=== PATIENT | female | born 1945 | race Caucasian/White ===

== ENCOUNTER 2019-06-03 18:11 | Emergency (ER) | payer MEDICARE, OTHER ==
[~2019-06-03] VITALS: Ht 157.5 cm; Wt 92.4 kg
[2019-06-03 18:16] VITALS: BP 139/88
--- NOTE | 2019-06-03 18:49 | NUR ---
PT STATES SHE WAS GIVEN GINKGO BILOBA 75MG, GARLIC TABLET, L-ARGININE TO TREAT HER HEADACHE. SHE ALSO REPORTS TAKING 2 BAYOR ASPIRIN'S.
[2019-06-03] MEDS ORDERED: ketorolac trometh inj. 60 MG/2 ML VIAL IM ONE (19:50)
[2019-06-03] MEDS ORDERED: ketorolac trometh. 30mg/ml inj. IM ONE (20:00)
== END 2019-06-03 20:30 | disposition home or self-care (01) ==
LOC: ER 18:12
DX: G43.909 Migraine, unspecified, not intractable, without status migrainosus (principal); I25.10 Atherosclerotic heart disease of native coronary artery without angina pectoris; Z95.1 Presence of aortocoronary bypass graft; Z88.2 Allergy status to sulfonamides
CPT/HCPCS: 70450; 96372; 99284; J1885

== ENCOUNTER 2025-03-15 16:09 | Outpatient (CLI) | payer MEDICARE, MEDICAID ==
[~2025-03-15 16:09] MED LIST: NO HOME MEDS
[2025-03-15 16:55] LABS: MEAN PLATELET VOLUME 10.8 FL (7.4-10.4); RED CELL DISTRIBUTION WIDTH 14.6 % (11.5-14.5)
[2025-03-15 16:56] LABS: LEUKOCYTE ESTERASE ,URINE NEGATIVE (Neg); NITRITES, URINE NEGATIVE (Neg); OCCULT BLOOD,URINE NEGATIVE (Neg)
[2025-03-15 17:13] LABS: UA COLLECTION TYPE VOIDED
[2025-03-15 17:14] LABS: MUCUS STRANDS FEW /LPF (Neg); RENAL CELLS, URINE MODERATE /HPF; SQUAMOUS EPITHELIAL CELL,UR MANY /LPF (FEW)
[2025-03-15 17:34] LABS: CHOL/HDL RATIO 3.8 (0.00-4.99); CREATININE 0.85 MG/DL (0.40-0.90); LDL CHOLESTEROL 129 MG/DL (50-100); TOTAL CARBON DIOXIDE 26.4 MMOL/L (24-32); eGFR 64 ML/MIN
== END 2025-03-15 23:59 | disposition home or self-care (01) ==
LOC: RAD 16:09
PROVIDERS: ATTEND Family Medicine
DX: I10 Essential (primary) hypertension (principal); R55 Syncope and collapse; R53.83 Other fatigue; H61.23 Impacted cerumen, bilateral; I35.8 Other nonrheumatic aortic valve disorders
CPT/HCPCS: 36415; 80053; 80061; 81001; 82607; 82746; 84425; 84439; 84443; 85025